=== PATIENT | male | born 1980 | race Caucasian/White ===

== ENCOUNTER 2025-08-12 07:54 | Emergency (ER) | payer SELFPAY ==
[2025-08-12 07:56] VITALS: BP 133/79
--- NOTE | 2025-08-12 08:11 | ED.GENMED ---
History of Present Illness
General
Chief Complaint: Social Service Referral
Source: patient
Time Seen by Provider: 08/12/25 07:58
History of Present Illness
History of Present Illness:
44-year-old male presents emergency department after recently being released from a behavioral health facility. He has several medications that he is prescribed, and he states that he is unable to go to [place] where the medications were called
into. He is requesting that we administer the medications here. He denies any complaints at this time except feeling anxious.
Past History
Past History
ED Past Medical History: Psychiatric (Anxiety, PTSD)
ED Past Surgical History: None
Social History
Tobacco: Smoker
Alcohol: Former
Drug: None
Personal: Single
Living: homeless
Phy Exam
Physical Exam
Physical Exam:
GENERAL: Alert , in no apparent distress
EYE: pupils equal and reactive
NECK: Supple, no significant adenopathy.
ENT: o/p clr, mmm.
CARDIAC: Regular rate and rhythm .
LUNGS: Clear breath sounds bilaterally, no acute respiratory distress, no wheezes/rales/rhonchi
ABDOMEN: Soft, without focal tenderness, no r/g, no cvat
NEUROLOGICAL: Alert and oriented, no focal neuro deficits
SKIN: Warm and dry, skin intact.
MUSCULOSKELETAL: No edema, well perfused.
PSYCH: Normal and appropriate interaction.
Course
Orders/Labs/Results
Orders:
Orders
08/12/25 08:15
Case Management Consult ONCE
Case Management Consult: Discharge Planning
Vital Signs
Initial and Last Documented VS:
Initial Vital Signs
Temp Pulse Resp BP Pulse Ox
98.5 F 97 18 133/79 97
08/12/25 07:56 08/12/25 07:56 08/12/25 07:56 08/12/25 07:56 08/12/25 07:56
Last Documented Vital Signs
Temp Pulse Resp BP Pulse Ox
98.6 F 82 20 131/86 99
08/12/25 08:19 08/12/25 08:19 08/12/25 08:19 08/12/25 08:19 08/12/25 08:19
*Pulse Oximetry
SaO2: 97
Oxygen Mode of Delivery: Room air
Update Note
Update Note:
Patient presents to the Emergency Department with medication refill
Number and Complexity of Problems Addressed at the Encounter
� Chronic conditions affecting care:
� Acute Exacerbation and/or Progression of Chronic Illness:
� Differential Diagnosis includes: But not limited to withdrawal, severe anxiety, etc. etc.
Amount and/or Complexity of Data to be Reviewed and Analyzed
� I performed an independent evaluation of and my interpretation is:
EKG:
CT:
Xrays:
Laboratory Studies:
Other:
� Review of other/old records reveals:
� Clinical information was obtained by an independent historian:
� Prescriptions/Medications Considered but not given:
� Further testing considered but not performed:
Risk of Complications and/or Morbidity or Mortality of Patient Management
� Social determinants of health affecting care:
� Discussion with other providers (PCP, Hospitalists, Consultants, etc):
� Escalation of care including admission/observation vs risk of discharge considered: Case management has been consulted for patient to provide transportation for him to get his medications as well as confirm that he has ability
to fill prescriptions. I personally tried to call [facility] but was unable to find somebody who is familiar with the patient. I also called the [facility], but is currently closed. Patient is stable without vital sign abnormalities, agitation, etc.
Recommendation is that he proceed to [place] to get his medications filled.
ED Attending Note
-
Portions of this chart may have been created with voice recognition software.� Occasional wrong word or��sound alike� substitutions may have occurred due to the inherent limitations of voice recognition software.
Discharge Plan
Departure
Patient Disposition: Home (Routine Discharge)
Date of Disposition: 08/12/25
Time of Disposition: 08:44
Patient with high blood pressure during this ER visit?: Yes
Condition: Good
Discharge Problem:
Encounter for medication refill
Instructions: BLOOD PRESSURE
Prescriptions:
No Action
quetiapine [Seroquel] 300 mg Tablet
300 mg PO HS
Patient Comments:
patient ran out of medication 10 days ago
fluoxetine [Prozac] 40 mg Capsule
DAILY
Klonopin 30 mg
TID
Rx Instructions:
patien ran out of medication 10 days ago
Referrals:
UNKNOWN - PT DOES,NOT KNOW [Family Provider]
Activity Restrictions/Additional Instructions:
PROCEED DIRECTLY TO THE [facility] IN [place] WHERE YOU MEDICATIONS WERE PRESCRIBED.
Interventions
Interventions:
*General Assessment Last Done: 08/12/25 08:19
*Neglect/Abuse Screening Last Done: 08/12/25 08:19
*ED COVID-19 Vaccine History Last Done: 08/12/25 08:00
*ED Influenza Vaccine History Last Done: 08/12/25 08:00
[facility] Risk Assessment Tool Last Done: 08/12/25 08:19
*Risk Screen - Suicide (C-SSRS) Last Done: 08/12/25 08:19
ED-Psychological Assessment Last Done: 08/12/25 08:19
Discharge Date and Time
Print Language: PASHTO
[2025-08-12 08:19] VITALS: BP 131/86; BMI 24.4
--- NOTE | 2025-08-12 08:44 | EDCM ---
Consult received. Chart reviewed
Spoke with pt with Dr. De Santiago ED attending at bedside
He was recently discharged from [facility]
He lives in [place] and needs a ride back home
Plan to get him a lyft at ED entrance once discharged by ED RN
ED charge Caren made aware
--- NOTE | 2025-08-12 09:13 | EDCM ---
Pt is discharged from ED
ED charge nurse Caren is coordinating Lyft for discharge
no CM needs
== END 2025-08-12 08:56 | disposition home or self-care (01) ==
LOC: EMR 07:54
PROVIDERS: EMERGENCY PHYSICIAN Emergency Medicine
DX: Z76.0 Encounter for issue of repeat prescription (principal); R03.0 Elevated blood-pressure reading, without diagnosis of hypertension; F41.9 Anxiety disorder, unspecified; F43.10 Post-traumatic stress disorder, unspecified; F17.200 Nicotine dependence, unspecified, uncomplicated
CPT/HCPCS: 99281

== ENCOUNTER 2025-08-12 22:51 | Emergency (ER) | payer SELFPAY ==
[2025-08-12 22:53] VITALS: BP 132/90
[2025-08-12 23:07] VITALS: BMI 22.7
[2025-08-13] MEDS: ZOFRAN ODT (ORALLY DISINTEGRATING) 4 MG PO (00:02)
--- NOTE | 2025-08-13 02:35 | ED.GENMED ---
History of Present Illness
General
Chief Complaint: Withdrawal Symptoms
Source: patient
Exam Limitations: none
Time Seen by Provider: 08/12/25 23:08
Nursing documentation reviewed up to this point in time: agreed with
History of Present Illness
History of Present Illness:
Note:
CHIEF COMPLAINT(S)
Nausea, diarrhea, vomiting, and tremors potentially related to opioid withdrawal.
HISTORY OF PRESENT ILLNESS
The patient is a 44-year-old male who presents with complaints of nausea, diarrhea, vomiting, and tremors. He reports that the symptoms are severe enough to cause his legs to shake, necessitating a need to lie down. The patient indicates these
symptoms began after not taking his prescribed medication, Klonopin, for four days. He has a past history of opioid use, specifically Percocet, and admits to recent cessation from benzodiazepines, for which he acknowledges a dependency. He is
concerned about managing these symptoms until he can see his family doctor in two days. He reports taking Suboxone (buprenorphine/naloxone) at a dose of 8 mg, which he took six hours prior to arrival, although he vomited afterward. Currently, he
denies any heroin use and previously used crystal meth. He is currently prescribed Suboxone for opioid withdrawal by Dr. Johnson, whom he mentions he will see in two days.
SOCIAL DETERMINANTS AFFECTING HEALTH
The patient notes a history of substance use including opioid and crystal meth, though he asserts no recent illicit substance usage. He had been receiving care at a behavioral health facility, but his discharge was not accompanied by adequate
prescription refills needed to maintain his regimen outside the facility.
MEDICATIONS
- Suboxone (8 mg) daily, last dose six hours ago
- Klonopin (clonazepam), previously used three times daily, currently without intake for four days
PHYSICAL EXAM
General: Alert, no acute distress.
Skin: Warm, dry.
Head: Normocephalic, atraumatic.
Neck: Supple, trachea midline.
Eye Ears, nose, mouth and throat: Oral mucosa moist.
Cardiovascular: Normal peripheral perfusion, No edema.
Respiratory: Respirations are non-labored.
Gastrointestinal: Abdomen nondistended.
Back: Normal range of motion, Normal alignment.
Musculoskeletal: Normal ROM, normal strength.
Neurological: Alert and oriented to person, place, time, and situation, No focal neurological deficit observed.
Psychiatric: Cooperative, appropriate mood & affect.
PLAN
Administer antiemetic medication to manage nausea and vomiting symptoms. Advise continued monitoring for withdrawal symptoms. Recommend follow-up with Dr. Johnson within two days as planned. Consider referring to social work for additional support
regarding medication management and substance use recovery.
DIFFERENTIAL DIAGNOSIS
The Differential Diagnosis includes, in no particular order and is not limited to:
1. Benzodiazepine withdrawal
2. Opioid withdrawal
3. Gastroenteritis
4. Anxiety-related symptoms
5. Dehydration secondary to vomiting and diarrhea
6. Suboxone-related side effects
7. Viral infection
8. Acute stress reaction
9. Medication non-compliance
10. Psychological distress related to chronic substance use
Disposition:
SUMMARY OF ENCOUNTER
The patient is a 44-year-old male who presented with nausea, vomiting, diarrhea, and tremors, potentially related to opioid withdrawal or benzodiazepine withdrawal. The symptoms began after cessation of Klonopin (clonazepam) for four days. The
patient did not appear to be in acute distress, but initially presented with tachycardia. Management involved monitoring symptoms and planning follow-up with his primary care physician.
ASSESSMENT
The assessment includes potential opioid withdrawal versus benzodiazepine withdrawal as contributing factors to the patients symptoms.
EMERGENCY TREATMENTS ADMINISTERED
An antiemetic medication was administered to address nausea and vomiting.
PLAN
- Administer antiemetic medication to manage nausea and vomiting symptoms.
- Recommend monitoring for withdrawal symptoms.
- Advise the patient to follow up with Dr. Johnson in two days as planned for further management of opioid withdrawal.
FOLLOW-UP INSTRUCTIONS
Follow up with Dr. Johnson in two days.
MEDICAL DECISION MAKING
1. Number and Complexity of Problems Addressed:
Chronic conditions affecting care include a history of opioid use and recent benzodiazepine withdrawal. Differential diagnosis includes:
- Benzodiazepine withdrawal
- Opioid withdrawal
- Gastroenteritis
- Anxiety-related symptoms
- Dehydration secondary to vomiting and diarrhea
- Suboxone-related side effects
- Viral infection
- Acute stress reaction
- Medication non-compliance
- Psychological distress related to chronic substance use
2. Data:
Category 1:
- Tests and documents were reviewed with no emergent findings requiring intervention in the emergency department.
3. Risk:
Prescription drug management is indicated, and the patient has been advised to follow up with his primary care provider.
DIAGNOSIS
- Withdrawal from unspecified drug, uncomplicated (ICD-10: F19.239)
- Opioid dependence, uncomplicated (ICD-10: F11.20)
- Benzodiazepine dependence, uncomplicated (ICD-10: F13.20)
Past History
Past History
ED Past Medical History: Psychiatric (Anxiety, PTSD)
ED Past Surgical History: None
Social History
Tobacco: Smoker
Alcohol: Former
Drug: None
Personal: Single
Living: homeless
Phy Exam
Physical Exam
Physical Exam:
.
Course
Orders/Labs/Results
Orders:
Orders
08/12/25 23:52
Ondansetron Orally Disint [Zofran Odt (Orally Disintegrating)] 4 mg PO NOW STA
08/13/25 00:34
CLONAZepam [CLONAZepam ODT] 0.5 mg PO NOW STA
Vital Signs
Initial and Last Documented VS:
Initial Vital Signs
Temp Pulse Resp BP Pulse Ox
98.6 F 107 16 132/90 97
08/12/25 22:53 08/12/25 22:53 08/12/25 22:53 08/12/25 22:53 08/12/25 22:53
Last Documented Vital Signs
Temp Pulse Resp BP Pulse Ox
98.6 F 84 18 132/90 96
08/12/25 22:53 08/13/25 00:30 08/13/25 00:15 08/12/25 22:53 08/13/25 02:36
*Pulse Oximetry
SaO2: 96
Oxygen Mode of Delivery: Room air
Patient hypoxic: no
*Critical Care Note
Total Time (30-74mins, 75-104mins- exclusive of procedures): Not Applicable
ED Attending Note
-
Portions of this chart may have been created with voice recognition software.� Occasional wrong word or��sound alike� substitutions may have occurred due to the inherent limitations of voice recognition software.
Discharge Plan
Departure
Patient Disposition: Home (Routine Discharge)
Date of Disposition: 08/13/25
Time of Disposition: 00:18
Patient with high blood pressure during this ER visit?: Yes
Condition: Good
Discharge Problem:
Nausea and vomiting
Instructions: Nausea and Vomiting, Adult (DC), BLOOD PRESSURE
Prescriptions:
New
ondansetron 4 mg tablet,disintegrating
4 mg PO Q8H PRN (Reason: nausea and vomiting) 4 Days Qty: 7 0RF
No Action
quetiapine [Seroquel] 300 mg Tablet
300 mg PO HS
fluoxetine [Prozac] 40 mg Capsule
DAILY
Klonopin 30 mg
30 mg PO TID
buprenorphine-naloxone [Suboxone] 8-2 mg Film
2 film BUCCAL DAILY
Referrals:
UNKNOWN - PT DOES,NOT KNOW [Family Provider]
Interventions
Interventions:
*General Assessment Last Done: 08/12/25 23:07
*Neglect/Abuse Screening Last Done: 08/12/25 23:07
*ED COVID-19 Vaccine History Last Done: 08/12/25 23:07
*ED Influenza Vaccine History Last Done: 08/12/25 23:07
[facility] Risk Assessment Tool Last Done: 08/12/25 23:07
*Risk Screen - Suicide (C-SSRS) Last Done: 08/12/25 22:53
*Nursing Disposition Last Done: 08/13/25 00:46
ED- Neurological Assessment Last Done: 08/12/25 23:13
ED-Psychological Assessment Last Done: 08/12/25 23:13
Discharge Date and Time
Discharge Date/Time: 08/13/25 00:47
Print Language: [email or web address]
== END 2025-08-13 00:47 | disposition home or self-care (01) ==
LOC: EMR 22:51
PROVIDERS: EMERGENCY PHYSICIAN Emergency Medicine
DX: R11.2 Nausea with vomiting, unspecified (principal); R19.7 Diarrhea, unspecified; R25.1 Tremor, unspecified; R03.0 Elevated blood-pressure reading, without diagnosis of hypertension; F11.23 Opioid dependence with withdrawal; F13.20 Sedative, hypnotic or anxiolytic dependence, uncomplicated; F17.200 Nicotine dependence, unspecified, uncomplicated; F41.9 Anxiety disorder, unspecified; F43.10 Post-traumatic stress disorder, unspecified; F10.10 Alcohol abuse, uncomplicated
CPT/HCPCS: 99283